=== PATIENT | female | born 1990 | race Caucasian/White ===

== ENCOUNTER 2023-12-20 19:27 | Inpatient (IN) | payer OTHER, SELFPAY ==
[2023-12-20] VITALS (8 sets, daily range): BP systolic 123–162; BP diastolic 63–91; PULSE 71–85; RESP 16; TEMP 36.5–36.9; O2SAT 97–98; BMI 40.4
[2023-12-20] MEDS: Lactated Ringers 1,000 ML 50 ML IV (20:15)
[2023-12-20 20:22] LABS: Absolute Lymphocyte Count 2.12 X10^3/uL (0.83-4.51); Absolute Neutrophil Count 8.4 X10^3/uL (2.0-7.7); Basophil# 0.03 X10^3/uL; Basophil% 0.3 % (0-1); Eosinophils% 1.7 % (0-5); Hematocrit 31.6 % (37-47); Hemoglobin 10.6 g/dL (12.0-15.0); Lymphocyte # 2.12 X10^3/ul (0.83-4.51); Lymphocyte % 18.2 % (19-41); Mean Corp Hgb Conc 33.5 g/dL (32-36); Mean Corpuscular Volume 92.4 fL (81-99); Mean Platelet Vol. 10.6 fl (6.2-12.0); Monocyte# 0.85 X10^3/uL; Monocyte% 7.3 % (0-10); NRBC Flagged by Analyzer 0 % (0-5); Neutrophil # 8.38 X10^3/uL (2.7-7.7); Neutrophil % 71.7 % (47-70); Platelet Count 278 K/mm3 (150-450); RBC Distribution Width CV 15.8 % (11.6-14.6); RBC Distribution Width SD 53.2 fl (35.1-43.9); Red Blood Count 3.42 M/mm3 (4.2-5.4); White Blood Count 11.7 K/mm3 (4.4-11.0)
--- NOTE | 2023-12-20 20:24 | HP.PCM.OB_ITS ---
HPI - General General Date of Admission: 12/20/23 Date of Service: 12/20/23 Chief Complaint: induction of labor HPI Narrative tariq ESPINAL a 33 YOF G 1 P0 W 37 2/7 weeks gestation w/ EDC 01/08/24 presents for induction of labor at [facility] recommendation due to GDMA2 w/ polyhydramnios. complicated to date by maternal obesity, GDMA2, anemia, depression, h/o abnormal paps NKDA medications- prilosec, NPH insulin, abilify and zooft Social history- she denies any tob/drug/etoh use during the surgery history - tonsillectomy Maternal Data Information Final ROCIO: 01/08/24 Final ROCIO Source: US <20 weeks Gestational age: 37 2/7 weeks [facility] Home Medications ?Medication ?Instructions ?Recorded ?Last Taken ?Type fexofenadine-pseudoephedrine ER 1 tab.sr PO DAILY 03/28/13 Unknown History 180 mg-240 mg tablet,ext.release 24 hr (Malika-D 24 Hour) norethindrone 1 mg-e. estradiol 20 1 ea PO DAILY 06/10/15 Unknown History mcg (24)-iron 75 mg (4) chew tablet (Minastrin 24 Fe) Allergy/AdvReac Type Severity Reaction Status Date / Time No Known Allergies Allergy Verified 03/28/13 08:50 Social History Smoking Status: Never smoker ROS Constitutional Constitutional: Denies fatigue, fever(s) or malaise Eyes Eyes: Denies change in vision ENT HEENT: Denies dizziness or headache(s) Cardiovascular Cardiovascular: Denies chest pain, dyspnea or lightheadedness Respiratory/Chest Respiratory/Chest: Denies cough or dyspnea Gastrointestinal Gastrointestinal: Denies change in bowel habits Genitourinary Genitourinary: Denies burning urination or genital lesions Integumentary Integumentary: Denies rash Neurologic Neurologic: Denies confusion, dizziness, headache(s), numbness or weakness Vital Signs Vital Signs Vital Signs: 12/20/23 19:39 12/20/23 19:39 12/20/23 19:40 Temperature Temperature Source Pulse Rate 71 79 Respiratory Rate Blood Pressure 123/85 H BP Systolic 123 BP Diastolic 85 Pulse Ox 12/20/23 19:40 12/20/23 19:40 12/20/23 19:40 Temperature Temperature Source Temporal Pulse Rate Respiratory Rate 16 Blood Pressure BP Systolic BP Diastolic Pulse Ox 98 12/20/23 19:40 Temperature 97.7 F L Temperature Source Pulse Rate Respiratory Rate Blood Pressure BP Systolic BP Diastolic Pulse Ox Weight Weight: 113.8 kg Body Mass Index (BMI) 40.4 Physical Exam Const alert and no apparent distress General Appearance: cooperative HEENT normocephalic Resp normal respiratory effort Cardio regular rate GI soft to palpation GI Narrative: gravid, nontender, appropriate for gestational age Extremity no calf tenderness General Extremity: edema Skin no wounds Rashes: No rashes noted Psych activity/motor behavior normal Labs Labs Labs: Antibody Screen Pending Hct 31.6 % (37-47) L Hgb 10.6 g/dL (12.0-15.0) L Syphilis Total Ab Pending VZV IgG Antibody < 0.91 index (.-) L Assessment & Plan (1) 37 weeks gestation of : PLAN: Risk benefits and alternatives to induction of labor, discussed with patient, her questions were answered to her satisfaction she desires to proceed. Will proceed with Dee and nasal Prestel induction of labor followed by Pitocin artificial rupture membranes if needed. Gestational diabetes class A2 will give 8 units of insulin tonight and monitor blood sugars appropriately. Estimated weight is approximately 4000 g and pelvis clinically adequate to expect vaginal delivery. (2) High-risk in third trimester: (3) Gestational diabetes mellitus, class A2: (4) Maternal obesity syndrome in third trimester:
[2023-12-20 20:48] LABS: Bedside Glucose 68 mg/dL (74-106)
[2023-12-20 20:57] LABS: Syphilis Antibodies Non-reactive
[2023-12-20] MEDS: 0.9% Normal Saline Single 100 ML IV.SOLN. INTRA-UTER (21:01)
[2023-12-20] MEDS: miSOPROStol 25 MCG TABLET VAGINAL (21:02)
[2023-12-20 22:17] LABS: Bedside Glucose 89 mg/dL (74-106)
[2023-12-20] MEDS: Insulin NPH Human 100 UNITS/ML PEN 8 UNITS SC (22:55)
[2023-12-20 23:47] LABS: Bedside Glucose 97 mg/dL (74-106)
[2023-12-21] VITALS (83 sets, daily range): BP systolic 106–147; BP diastolic 50–93; PULSE 64–122; RESP 16; TEMP 36.2–36.9; O2SAT 85–99
[2023-12-21] MEDS: Oxytocin 15 Units/NS 250ml 15 UNITS/250 ML IV.SOLN 2 UNITS IV (01:10)
[2023-12-21 02:59] LABS: Bedside Glucose 92 mg/dL (74-106)
[2023-12-21] MEDS: Acetaminophen 500 MG Tablet PO ×2 (05:49→17:57)
[2023-12-21 06:58] LABS: Bedside Glucose 143 mg/dL (74-106)
[2023-12-21 08:30] LABS: Bedside Glucose 88 mg/dL (74-106)
--- NOTE | 2023-12-21 08:57 | PCM.PN.BLA ---
Progress Note pt seen at bedside, AROM performed- Meconium noted. Continue Pitocin. FHR reviewed, cat 1.
[2023-12-21] MEDS: Lactated Ringers 1,000 ML 999 ML IV (10:19)
[2023-12-21] MEDS: Ondansetron 4 MG/2 ML Vial IV (10:31)
[2023-12-21] MEDS: fentaNYL-bupivacaine (epidural) 100 ML BAG EPIDURAL ×2 (11:35→15:44)
[2023-12-21 12:20] LABS: Bedside Glucose 77 mg/dL (74-106)
[2023-12-21 13:19] LABS: Bedside Glucose 75 mg/dL (74-106)
[2023-12-21] MEDS: Lactated Ringers 1,000 ML 200 ML IV (13:28)
[2023-12-21 14:59] LABS: Bedside Glucose 81 mg/dL (74-106)
[2023-12-21 15:36] LABS: Bedside Glucose 78 mg/dL (74-106)
[2023-12-21 16:51] LABS: Bedside Glucose 77 mg/dL (74-106)
[2023-12-21] MEDS: Oxytocin 15 Units/NS 250ml 15 UNITS/250 ML IV.SOLN 20 UNITS IV (18:23)
--- NOTE | 2023-12-21 19:48 | EX.PCM.OBRPT ---
Vaginal Delivery Maternal Presentation Maternal Presentation: Medically Indicated Induction Type of Induction: Pitocin, Dee Bulb and Amniotomy Operative Information Date of Procedure: 12/21/23 Pre-Operative Diagnosis: GDMA2, polyhydramnios, Obesity in , meconium Post-Operative Diagnosis: Same, live female Surgery / Procedure Performed: Spontaneous Vaginal Delivery Type of Anesthesia: Epidural Drain: Dee to straight drain Estimated Blood Loss: 150 Time of Delivery: 19:23 Findings Description of Procedure: Patient progressed to fully dilated. Good maternal pushing efforts delivered the infant's head. Loose nuchal cord was appreciated this was reduced prior to delivery. Anterior shoulder delivered without complication followed by the posterior shoulder and the rest the infant's body. The infant was placed on the mother's chest and the cord was clamped and cut immediately. The infant was handed to the waiting nursery team and brought to the [facility] for resuscitation measures and further evaluation. At this time IV Pitocin was started. Cord gases and cord blood were obtained. First-degree vaginal laceration was appreciated with some brisk bleeding. 3-0 Rapide suture in a [id number] fashion were placed in multiple areas. Laceration was minimal however the bleeding was brisk for how small the laceration was. Pressure was held for 2 minutes. Good hemostasis was then appreciated. Presentation: Vertex Amniotic Membrane Rupture Type: Artificial Amniotic Fluid Description: Moderate meconium Placental Delivery Description: Expressed Placenta Disposition: [facility] Specimen(s) Removed: Placenta Cord Vessel Description: 3 Vessels Cord Entanglement: Around neck x 1, loose Nuchal Cord Compression: Without compression Cord Gases: ABG and VBG Infant A Gender: Female (1 minute): 3 (5 minute): 9 Delayed Cord Clamping: No Post Vaginal Delivery Medications Given After Delivery: IV Pitocin Episiotomy Description: None Laceration: Vaginal Extension/lac and 1st degree Complication Complications: None
[2023-12-21] MEDS: Oxytocin 15 Units/NS 250ml 15 UNITS/250 ML IV.SOLN 83 UNITS IV (19:55)
[2023-12-21] MEDS: Pantoprazole Sodium 20 MG Tablet PO (20:36)
[2023-12-21 21:58] LABS: Bedside Glucose 86 mg/dL (74-106)
[2023-12-21] MEDS: ARIPiprazole 2 MG Tablet PO (23:33)
[2023-12-21] MEDS: Sertraline 100 MG Tablet 150 MG PO (23:34)
[2023-12-22] MEDS: Acetaminophen 500 MG Tablet 1000 MG PO ×2 (01:37→13:54)
[2023-12-22 04:10] VITALS: BP 136/80; PULSE 89; RESP 16; TEMP 36.6; O2SAT 96
[2023-12-22 05:57] LABS: Bedside Glucose 93 mg/dL (74-106)
[2023-12-22 08:20] VITALS: BP 134/80; PULSE 90; RESP 16; TEMP 36.6; O2SAT 99
--- NOTE | 2023-12-22 08:48 | PCM.PN.CNM ---
Subjective Subjective Patient seen at bedside. Denies pain. in SCN for blood sugar issues. . Lochia decreasing. Objective Data Objective Data Vital Signs: Vital Signs Temp Pulse Resp BP Pulse Ox O2 Del Method 97.8 F 89 16 136/80 H 96 Room Air 12/22/23 04:10 12/22/23 04:10 12/22/23 04:10 12/22/23 04:10 12/22/23 04:10 12/22/23 04:10 Oxygen Delivery Method Room Air Weight: 250 lb 14.177 oz Body Mass Index (BMI) 40.4 Intake & Output: Intake and Output for Last 24 Hours 12/20/23 12/21/23 12/22/23 23:59 23:59 23:59 Intake Total 3750.00 / 3750.00 Output Total 100 / 100 2200 / 2200 1100 / 1100 Balance -100 / -100 1550.00 / 1550.00 -1100 / -1100 Lab / Micro Data 12/20/23 20:12 Labs: Laboratory Results - last 24 hr 12/21/23 11:51: POC Glucose 77 12/21/23 12:56: POC Glucose 75 12/21/23 14:07: POC Glucose 81 12/21/23 15:07: POC Glucose 78 12/21/23 16:28: POC Glucose 77 12/21/23 20:11: POC Glucose 86 12/22/23 05:37: POC Glucose 93 ROS Eyes Eyes: Denies blurry vision, change in vision or spots in vision ENT HEENT: Denies dizziness or headache(s) Cardiovascular Cardiovascular: Denies abdominal pain, chest pain or dyspnea Respiratory/Chest Respiratory/Chest: Denies cough, dyspnea, shortness of breath at rest or shortness of breath with exertion Gastrointestinal Gastrointestinal: Denies abdominal pain, diarrhea or vomiting Genitourinary Genitourinary: Denies change in urinary stream, difficulty urinating or dysuria Musculoskeletal Musculoskeletal: Reports none Integumentary Integumentary: Denies rash Neurologic Neurologic: Denies dizziness, headache(s), memory loss or weakness Physical Exam Const alert and no apparent distress General Appearance: cooperative and comfortable Exam Limitations: no limitations HEENT normocephalic Eyes General Eye: normal appearance of both eyes Neck full ROM General: normal visual inspection Chest Chest: symmetrical chest wall rise Resp normal respiratory effort and normal air movement Effort and Inspection: symmetric chest movement Auscultation: clear to auscultation bilaterally Cardio regular rate and regular rhythm GI normal to inspection, nondistended, normoactive bowel sounds Back/Spine normal ROM Extremity full ROM and no calf tenderness General Extremity: normal exam except as noted Skin no rashes or lesions noted Neuro CN's II-XII intact bilaterally Psych mental status grossly normal Assessment & Plan (1) (spontaneous vaginal delivery): (2) Maternal obesity syndrome in third trimester: (3) Gestational diabetes mellitus, class A2: (4) High-risk in third trimester: (5) 37 weeks gestation of : PLAN: Plan PPD 1 Routine care in SCN Breast feeding without difficulty- putting baby to breast in SCN
[2023-12-22] MEDS: Senna/Docusate Sodium 1 Tablet PO (09:22)
[2023-12-22] MEDS: Pantoprazole Sodium 20 MG Tablet PO ×2 (09:23→22:14)
[2023-12-22 13:54] VITALS: BP 124/74; PULSE 82; RESP 16; TEMP 36.8
[2023-12-22 19:52] LABS: Bedside Glucose 67 mg/dL (74-106)
[2023-12-22 19:52] LABS: Bedside Glucose 70 mg/dL (74-106)
[2023-12-22 20:06] VITALS: BP 138/91; PULSE 94; RESP 17; TEMP 36.9; O2SAT 98
[2023-12-22] MEDS: Sertraline 100 MG Tablet 150 MG PO (22:14)
[2023-12-22] MEDS: ARIPiprazole 2 MG Tablet PO (22:14)
[2023-12-23 02:35] VITALS: BP 137/92; PULSE 97; RESP 16; TEMP 36.8; O2SAT 98
--- NOTE | 2023-12-23 07:04 | DS.PCM_ITS ---
Providers Date of Admission: 12/20/23 Primary Care Physician: Chela Primary Care Phys Reason For Visit: VAGINAL Diagnosis Discharge Diagnosis (1) (spontaneous vaginal delivery): Status: Acute Code(s): O80 - Encounter for full-term uncomplicated delivery (2) Maternal obesity syndrome in third trimester: Status: Acute Code(s): O99.213 - Obesity complicating , third trimester (3) Gestational diabetes mellitus, class A2: Status: Acute Code(s): O24.419 - Gestational diabetes mellitus in , unspecified control (4) High-risk in third trimester: Status: Acute Code(s): O09.93 - Supervision of high risk , unspecified, third trimester (5) 37 weeks gestation of : Status: Acute Code(s): Z3A.37 - 37 weeks gestation of Plan PPD 1 Routine care Infant in [facility] Breast feeding without difficulty- putting baby to breast in [facility] Medications at Discharge Home Medications aripiprazole 2 mg tablet (Abilify) 2 mg PO DAILY depression 12/20/23 omeprazole 20 mg capsule,delayed release 20 mg PO BID acid reflux 12/20/23 sertraline 150 mg capsule 150 mg PO DAILY depression 12/20/23 Hospital Course Operations None Procedures None Summary of Care Provided Minutes Spent on Discharge: 15 Hospital Course: Patient had . Physical Exam Narrative Patient seen at bedside. Denies headache, vision changes, SOB, CP. . remains at [facility]. Patient desires discharge home and remain Hotel status. Const alert and no apparent distress General Appearance: cooperative and comfortable Exam Limitations: no limitations HEENT normocephalic Eyes General Eye: normal appearance of both eyes Neck full ROM General: normal visual inspection Chest Chest: symmetrical chest wall rise Resp normal respiratory effort and normal air movement Effort and Inspection: symmetric chest movement Auscultation: clear to auscultation bilaterally Cardio regular rate and regular rhythm GI normal to inspection, nondistended, normoactive bowel sounds Back/Spine normal ROM Extremity full ROM and no calf tenderness General Extremity: normal exam except as noted Skin no rashes or lesions noted Neuro CN's II-XII intact bilaterally Psych mental status grossly normal Weight / BMI Weight Weight: 250 lb 14.177 oz Body Mass Index (BMI) 40.4 ABG / Lab / Microbiology Data 12/20/23 20:12 Laboratory: Laboratory Results - last 24 hr 12/21/23 17:29: POC Glucose 67 L 12/21/23 17:42: POC Glucose 70 L D/C Instructions Discharge Diet: No restrictions May resume sexual activity in: 6-8 weeks Weight Bearing Status: Weight bearing as tolerated Call your doctor if you observe: Fever of 101 or Higher, Inability to urinate, Using more than 1 pad per hour, Shortness of breath, Chest pain, Calf discomfort and Uncontrolled pain When: 2 weeks virtual visit/ 6 weeks in office Meaningful Use Info Meaningful Use Meaningful Use Diagnoses (Choose all that apply): None applicable Ischemic Stroke Statin Dosing Therapy Reference: STATIN DOSE THERAPY REFERENCE: * Patients > 75 years receive moderate or high dose statin therapy. * Patients 75 years or YOUNGER should receive HIGH intensity statin dose unless contraindicated. You will be required to document reason for non-treatment if statin daily dose does not meet guidelines. HIGH DOSE STATIN THERAPY DAILY Atorvastatin > than or = to 40 mg Rosuvastatin > than or = to 20 mg Amlodipine + Atorvastatin > than or = to 2.5/40 mg Ezetimibe + Simvastatin 10/80 mg Simvastatin 80mg Discharge Plan Admission Admit Date/Time: 12/20/23 19:27 Primary Reason for Your Visit: Labor and delivery Attending Provider: Denisse Vu Primary Care Provider: Care Physician,No Primary Discharge Orders/Prescriptions Prescriptions: Continued aripiprazole [Abilify] 2 mg tablet 2 mg PO DAILY sertraline 150 mg capsule 150 mg PO DAILY omeprazole 20 mg capsule,delayed release(DR/EC) 20 mg PO BID Discontinued aspirin [Adult Low Dose Aspirin] 81 mg tablet,delayed release (DR/EC) 81 mg PO DAILY Referrals / Follow Up: Lakesha Reynolds CNM [Med Staff - [facility] Practice Prof] - Care Physician,No Primary [Primary Care Provider] - Disposition Disposition (needs filled in before D/C Order can be placed): Home, Self Care
[2023-12-23 08:00] VITALS: BP 101/64; PULSE 93; RESP 16; O2SAT 100
[2023-12-23] MEDS: Pantoprazole Sodium 20 MG Tablet PO (11:09)
[2023-12-23 14:33] VITALS: BP 139/93; PULSE 78; RESP 16; TEMP 36.6; O2SAT 98
[2023-12-23 14:37] VITALS: BP 128/82
[2023-12-23] MEDS: Senna/Docusate Sodium 1 Tablet PO (14:38)
[2023-12-23 18:08] VITALS: BP 134/82
--- NOTE | 2023-12-24 11:06 | CASEMGMT ---
Addendum entered by Cayla Henderson 12/24/23 11:49: Social Work SW called [facility] ,the case was screened as MOB has protective capacity. SW let MOB know. No further needs anticipated at this time. LITO Dobbins Original Note: Social Work Assessment Patient's Name: Tabby Butterfield Date of : 12/21/2024 Gender: female Address: [address] [place] [address] (home) REFERRAL Date of Referral: 12/22/2023 Time of Referral: 3:04am Date of Intervention: 12/24/2023 Time of Intervention: 9:45am Referral site: [facility][NOTE 3] Referred by: Ira Ling Reason for Referral: in SCN, first baby. Also concern of FOB substance abuse, MOB scoring a 10 on PHQ-9 PSYCHOSOCIAL HISTORY: Presenting situation: Baby in SCN w/hypoglycemia. MOB with history of depression, on Abilify and Zoloft, scored a 10 on PHQ-9. FOB with history of methamphetamine use History obtained from: MOB Household composition: MOB and baby Tabby. FOB not currently living with them, he is with his father: FOB: Kentrell Holman, 12/29/1988, [address] [place] [address] Patient's parent/guardian status: MOB is guardian of the baby. Medical History: MOB: maternal obesity, history of depression, gestational diabetes, anemia Baby: Born 12/22/23, 3260 grams at , Apgars 3 and 9 at one and 5 minutes. Baby was stunned at , hypoglycemic and in SCN Developmental Concerns: None at this time Educational Status: MOB just completed doctorate in nursing practice at [employer] 9 months ago. Health Care Coverage: [facility] Financial Status: MOB reports no financial concerns at this time. MOB was working at [employer], plans to transfer to [employer], works in hospital seeing pts. Childcare/Caregiver(s): MOB, MOB's parents, MOB's brother and [id number](they live down the driveway. MOB plans to return to work, MOB's mother will watch the baby, MOB works overnight associate Transportation: MOB has transportation Programs/Agencies Involved: None at this time. Behavioral Health Issues: MOB: History of depression, since middle school/high school. In 2020 YOGI did finally decide to get some help after her last deployment(was in ). YOGI has been in and out of counseling since a child. The first time she did counseling was after her parents . She started counseling again last year, goes to [facility] and also gets med management there. She plans to continue, and will ask for med changes if needed. She states the was rough at times, and her meds were increased during . RN completed PHQ-9, MOB scored a 10. She denies any thoughts of wanting to harm herself, states the only time she had thoughts like this was when she was a teen. At present MOB feels okay in regard to depression but also will reach out should she have an increase in symptoms. FOB: Kentrell Holman, she states he has been diagnosed w/ADHD when in high school. Substance abuse: MOB, no history. FOB: As per MOB, he has used meth intermittently, has been through rehab twice and just got out in October or November. She states eFJOSE has been in and out of detention, and the last times FOCj was in detention, MOB called his contracts officer an FOB went back to detention. She has known FOB since high school and they have had an on again/off again relationship since then. He does want to be involved with the baby and MOB is setting boundaries. She states he is narcissistic and will cristy his way in. She states she spoke to his PO before the of the baby and was advised to call the [employer] if she has any concerns about him. Safety: YOGI denies concerns of safety but does states she is never certain what he would do, based on his history of substance abuse. She states he has never been violent but they have argued. She states she did have security system installed. Family Stressors: The stressors are as outlined above, MOB expressing stress around involvement of FOB. She does not want to restrict his involvement with the baby but also wants to keep the baby safe. YOGI is concerned that FOB will not respect the boundaries she has set. She is prepared to call FOB's PO, get the law involved if it were to be needed. She has told FOB he is not to come to the house and is not able to stay w/them, she is concerned FOB will push this boundary. Support Systems: MOB reports a lot of support in her mother, father, brother and sister in law, multiple [employer] friends. Assessment MOB appropriate, answered all SW questions fully and completely. MOB able to express her concerns regarding the situation w/FOB in an appropriate manner, very self aware of her own depression. SW explained will be calling Children's Services, MOB states understanding and does not seem concerned, understands this is to be a support. Plan SW gave MOB resources including information on shaken baby, safe sleeping, Help Me Grow, and multiple resources on Depression and anxiety. MOB states understanding of PPD and aware of symptoms. SW encouraged her to go back to her providers at [place] [id number] if she is having increased depressive symptoms. MOB plans to do this, and has in fact done this in the past. MOB aware of concerns of FOB, and is ready to limit his contact with the baby as needed, get law enforcement involved if needed. Plan will be for baby to go home at discharge w/MOB. SW will call Children's Services but this will not hold up discharge. Response to Plan: MOB understands plan and is in agreement. No further social service needs are anticipated at this time. LITO Villasenor 12/24/2023
--- NOTE | 2023-12-28 15:39 | NURSING ---
Here for visit on 12-26-23, follow up phone call questions asked. Feeling well, no pain, bleeding is minimal, no headaches, visual disturbances, or flu like symptoms. Continuing to nurse every 3 hours, pumping, and supplementing formula. Volume of milk is beginning to increase. Omayra states she had a great experience in [place].
== END 2023-12-23 19:25 | disposition home or self-care (01) | DRG 807 ==
PROVIDERS: Admitting Provider Obstetrics & Gynecology; Referring Provider Obstetrics & Gynecology; Visit Provider Obstetrics & Gynecology
DX: O24.424 Gestational diabetes mellitus in childbirth, insulin controlled (principal); Z37.0 Single live birth; O40.3XX0 Polyhydramnios, third trimester, not applicable or unspecified; F32.A Depression, unspecified; O26.03 Excessive weight gain in pregnancy, third trimester; O69.81X0 Labor and delivery complicated by cord around neck, without compression, not applicable or unspecified; O70.0 First degree perineal laceration during delivery; O77.0 Labor and delivery complicated by meconium in amniotic fluid; O99.344 Other mental disorders complicating childbirth; Z3A.37 37 weeks gestation of pregnancy; Z79.899 Other long term (current) drug therapy
CPT/HCPCS: 59025; 59050; 82962; 85025; 86780; 86850; 86900; 86901; 99221; J7120; G0378; J2405